=== PATIENT | female | born 1990 | race Caucasian/White ===

== ENCOUNTER 2022-09-22 18:17 | Inpatient (IN) | payer MEDICAID ==
[~2022-09-22] VITALS: Ht 157.5 cm; Wt 72.6 kg
[2022-09-22] MEDS ORDERED: SODIUM CHLORIDE 0.9% 1,000 ML IV ONE (19:15)
[2022-09-22] MEDS ORDERED: MORPHINE SULFATE 4 MG/ML CPJ (NOT FOR IM USE) IV ONE (19:15)
[2022-09-22] MEDS ORDERED: METOCLOPRAMIDE HCL 10MG/2ML VIAL IV ONE (19:15)
[2022-09-22] MEDS: DIPHENHYDRAMINE 50MG/ML VIAL IV ONE ×2 (19:15→19:22)
[2022-09-22 19:38] LABS: HCG SCREEN NEGATIVE
[2022-09-22 19:39] LABS: BASOPHILS % 1.1 % (0.0-2.0); EOSINOPHILS % 0.2 % (0.0-5.0); HEMATOCRIT. 42.9 % (36.0-48.0); HEMOGLOBIN. 14.4 g/dL (12.0-16.0); LYMPHOCYTES % 9.9 % (20.0-50.0); MEAN CORPUSCULAR HEMOGLOBIN 24.8 pg (28.0-32.0); MEAN PLATELET VOLUME 8.7 fl (7.4-10.4); MONOCYTES % 11.1 % (2.0-8.0); NEUTROPHILS % 77.7 % (40.0-76.0); PLATELET 447 x1000/uL (130-400); RED CELL DISTRIBUTION WIDTH 16.4 % (11.6-14.6)
[2022-09-22 21:26] LABS: INR 1.3
[2022-09-22 21:55] LABS: CHLORIDE 83 mEq/L (98-107)
[2022-09-22] MEDS ORDERED: HYDROMORPHONE HCL/PF 2MG/ML CPJ IV PRN (22:45)
[2022-09-22] MEDS ORDERED: IPRATROPIUM/ALBUTEROL 0.5-3(2.5)MG/3ML NEB HHN PRN (22:45)
[2022-09-22] MEDS ORDERED: ONDANSETRON HCL 4MG/2ML INJ IV PRN (22:45)
[2022-09-22] MEDS ORDERED: ACETAMINOPHEN 650MG SUPP PR PRN (22:45)
[2022-09-22] MEDS ORDERED: NALOXONE HCL 0.4MG/ML VIAL IV PRN (23:00)
[2022-09-23 01:00] VITALS: BP_SYST 104; BP_SYST 99; BP_DIAS 53; BP_DIAS 60
[2022-09-23] MEDS: DEXT 5%/0.9% NACL 1,000 ML IV SCH ×2 (02:00→21:18)
[2022-09-23] MEDS: KCL 20MEQ/100ML PREMIX 100 ML IV SCH ×2 (03:30→09:04)
[2022-09-23 04:00] VITALS: BP 99/56
[2022-09-23 07:13] LABS: EOSINOPHILS % 0.9 % (0.0-5.0); HEMATOCRIT. 32.4 % (36.0-48.0); LYMPHOCYTES % 19.5 % (20.0-50.0); MEAN CORPUSCULAR HEMOGLOBIN 25.4 pg (28.0-32.0); MEAN CORPUSCULAR VOLUME 74.9 fL (81.0-99.0); MEAN PLATELET VOLUME 8.1 fl (7.4-10.4); MONOCYTES % 13.9 % (2.0-8.0); NEUTROPHILS % 64.7 % (40.0-76.0); PLATELET 302 x1000/uL (130-400); RED BLOOD CELL COUNT 4.33 mill/uL (4.2-5.4); RED CELL DISTRIBUTION WIDTH 15.8 % (11.6-14.6)
[2022-09-23 08:00] VITALS: BP 92/48
[2022-09-23] MEDS ORDERED: ENOXAPARIN 40MG/0.4ML SYR SUBCUT SCH (09:00)
[2022-09-23] MEDS: PANTOPRAZOLE SODIUM 40 MG/VIAL IV SCH (09:04)
[2022-09-23 12:00] VITALS: BP 87/61
[2022-09-23] MEDS ORDERED: LIDOCAINE HCL 1% 10 MG/ML 10ML VIAL ONE (12:45)
[2022-09-23 16:00] VITALS: BP 98/58
[2022-09-23] MEDS ORDERED: KCL 20MEQ/100ML PREMIX 100 ML IV NR (18:00)
[2022-09-23] MEDS ORDERED: METOCLOPRAMIDE HCL 10MG/2ML VIAL IV PRN (18:15)
[2022-09-23 18:27] LABS: CHLORIDE 94 mEq/L (98-107)
[2022-09-23 18:57] LABS: AMYLASE 43 IU/L (25-115); TOTAL IRON BINDING CAPACITY 359 ug/dL (250-450)
[2022-09-23 20:00] VITALS: BP 91/54
[2022-09-23 20:19] LABS: VITAMIN B12 SERUM > 2000.0 pg/mL (211-911)
[2022-09-23] MEDS ORDERED: POTASSIUM CHLORIDE INJ 40 MEQ in DEXT 5% WATER 500 ML IV NR (22:00)
[2022-09-24] VITALS: BP 91/59
[2022-09-24 00:03] LABS: T4 FREE 1.5 ng/dL (0.76-1.46)
[2022-09-24 04:00] VITALS: BP 80/50
[2022-09-24 04:38] LABS: CHLORIDE 100 mEq/L (98-107)
[2022-09-24 04:56] LABS: T4 FREE 1.32 ng/dL (0.76-1.46)
[2022-09-24 05:04] LABS: HEPATITIS B SURFACE ANTIGEN NEGATIVE
[2022-09-24] MEDS ORDERED: POTASSIUM CHLORIDE INJ 40 MEQ in DEXT 5% WATER 500 ML IV ONE ×2 (05:45→23:30)
[2022-09-24 05:55] LABS: HEMATOCRIT 30.3 % (36.0-48.0); HEMOGLOBIN 10.2 g/dL (12.0-16.0); MEAN CORPUSCULAR HEMOGLOBIN 25.2 pg (28.0-32.0); PLATELET 264 x1000/uL (130-400); RED BLOOD CELL COUNT 4.04 mill/uL (4.2-5.4); RED CELL DISTRIBUTION WIDTH 16.5 % (11.6-14.6)
[2022-09-24] MEDS ORDERED: KCL 20MEQ/100ML X 2 FOR TOTAL KCL 40MEQ/200ML IV SCH (06:30)
[2022-09-24 06:47] LABS: CARCINO EMBRYONIC ANTIGEN < 0.5 ng/ml
[2022-09-24] MEDS ORDERED: MIDAZOLAM HCL 2 MG/2 ML VIAL ONE (07:20)
[2022-09-24] MEDS ORDERED: FENTANYL CITRATE/PF 50MCG/ML 2ML VIAL ONE (07:20)
[2022-09-24] MEDS ORDERED: BUPIVACAINE HCL/PF 0.5% (5MG/ML) 10ML ONE (07:27)
[2022-09-24] MEDS ORDERED: POLYMYXIN B SULFATE 500000 UNITS/VIAL ONE (07:27)
[2022-09-24] MEDS ORDERED: ROCURONIUM BROMIDE 10MG/ML VIAL 5ML IV ONE (08:01)
[2022-09-24] MEDS ORDERED: ONDANSETRON HCL 4MG/2ML INJ IV PRN (08:15)
[2022-09-24] MEDS ORDERED: MORPHINE SULFATE 2 MG/ML CPJ (NOT FOR IM USE) IV PRN (08:15)
[2022-09-24] MEDS ORDERED: MORPHINE SULFATE 4 MG/ML CPJ (NOT FOR IM USE) IV PRN (08:15)
[2022-09-24] MEDS ORDERED: ALBUMIN HUMAN 25GM/100ML (25%) IV ONE (08:30)
[2022-09-24] MEDS ORDERED: LIDOCAINE HCL 2% JELLY 5ML ONE (08:31)
[2022-09-24] MEDS ORDERED: ONDANSETRON HCL 4MG/2ML INJ ONE (08:32)
[2022-09-24] MEDS ORDERED: DEXAMETHASONE 4MG/ML 1ML VIAL ONE (08:32)
[2022-09-24] MEDS ORDERED: CEFAZOLIN SODIUM 1000MG/VIAL ONE (08:32)
[2022-09-24] MEDS ORDERED: ALBUMIN HUMAN 5% 500 ML IV ONE ×2 (08:45)
[2022-09-24] MEDS ORDERED: GLYCOPYRROLATE 0.2 MG/ML 2ML VIAL ONE (08:48)
[2022-09-24] MEDS: FAMOTIDINE 20MG/2ML VIAL IV SCH ×2 (09:00→20:19)
[2022-09-24] MEDS ORDERED: NEOSTIGMINE METHYLSULFATE 1MG/ML 10 ML VIAL ONE (09:22)
[2022-09-24] MEDS ORDERED: FENTANYL CITRATE/PF 50MCG/ML 2ML VIAL IV PRN (09:30)
[2022-09-24] MEDS ORDERED: KETOROLAC 30MG/ML VIAL ONE (09:44)
[2022-09-24] MEDS ORDERED: HYDROMORPHONE PCA 10MG/50ML IV PRN (10:30)
[2022-09-24] MEDS ORDERED: ONDANSETRON INJ IV PRN (10:30)
[2022-09-24] MEDS ORDERED: NALOXONE INJ IV PRN (10:30)
[2022-09-24] MEDS ORDERED: DIPHENHYDRAMINE INJ IV PRN (10:30)
[2022-09-24] MEDS: HYDROMORPHONE HCL/PF 2MG/ML CPJ IV PRN ×7 (10:55→23:01)
[2022-09-24] MEDS: DEXT 5%/0.45% NACL KCL 20MEQ/L 1,000 ML IV SCH ×2 (14:45→21:23)
[2022-09-24] MEDS: PANTOPRAZOLE SODIUM 40 MG/VIAL IV SCH (15:27)
[2022-09-24 20:00] VITALS: BP 90/54
[2022-09-24] MEDS: MELATONIN 3MG TABLET PO SCH (21:00)
[2022-09-25] VITALS: BP 90/51
[2022-09-25] MEDS: KCL 20MEQ/100ML X 2 FOR TOTAL KCL 40MEQ/200ML IV SCH ×2 (00:27→02:09)
[2022-09-25] MEDS: HYDROMORPHONE HCL/PF 2MG/ML CPJ IV PRN ×7 (03:56→23:56)
[2022-09-25 04:00] VITALS: BP 89/57
[2022-09-25] MEDS: DEXT 5%/0.45% NACL KCL 20MEQ/L 1,000 ML IV SCH ×2 (05:26→16:00)
[2022-09-25 07:37] LABS: HEMATOCRIT 27.5 % (36.0-48.0); HEMOGLOBIN 9.1 g/dL (12.0-16.0); MEAN CORPUSCULAR HEMOGLOBIN 25.1 pg (28.0-32.0); PLATELET 233 x1000/uL (130-400); RED BLOOD CELL COUNT 3.61 mill/uL (4.2-5.4); RED CELL DISTRIBUTION WIDTH 16.4 % (11.6-14.6)
[2022-09-25 08:00] VITALS: BP 102/54
[2022-09-25 08:16] LABS: CHLORIDE 107 mEq/L (98-107)
[2022-09-25 08:26] LABS: PHOSPHORUS 2.1 mg/dL (2.5-4.9)
[2022-09-25] MEDS: FAMOTIDINE 20MG/2ML VIAL IV SCH ×2 (08:58→21:22)
[2022-09-25 12:00] VITALS: BP 101/70
[2022-09-25 16:00] VITALS: BP 104/56
[2022-09-25 20:00] VITALS: BP 95/54
[2022-09-25] MEDS: MELATONIN 3MG TABLET PO SCH (21:00)
[2022-09-26] VITALS: BP 94/53
[2022-09-26] MEDS: DEXT 5%/0.45% NACL KCL 20MEQ/L 1,000 ML IV SCH ×2 (03:24→12:00)
[2022-09-26 04:00] VITALS: BP 95/64
[2022-09-26] MEDS: HYDROMORPHONE HCL/PF 2MG/ML CPJ IV PRN ×5 (04:04→14:15)
[2022-09-26 08:00] VITALS: BP 97/59
[2022-09-26 08:13] LABS: HEMATOCRIT. 25.5 % (36.0-48.0); HEMOGLOBIN. 8.5 g/dL (12.0-16.0); MEAN CORPUSCULAR HEMOGLOBIN 25.7 pg (28.0-32.0); MEAN CORPUSCULAR VOLUME 76.6 fL (81.0-99.0); MEAN PLATELET VOLUME 8.7 fl (7.4-10.4); PLATELET 220 x1000/uL (130-400); RED BLOOD CELL COUNT 3.33 mill/uL (4.2-5.4); RED CELL DISTRIBUTION WIDTH 16.9 % (11.6-14.6)
[2022-09-26] MEDS: FAMOTIDINE 20MG/2ML VIAL IV SCH ×2 (08:29→21:04)
[2022-09-26 10:17] LABS: CHLORIDE 104 mEq/L (98-107)
[2022-09-26 12:00] VITALS: BP 93/56
[2022-09-26 14:04] LABS: PLATELET ESTIMATE NORMAL
[2022-09-26 16:00] VITALS: BP 102/54
[2022-09-26] MEDS ORDERED: KCL 10MEQ/50ML PREMIX 50 ML IV NR (16:30)
[2022-09-26 20:00] VITALS: BP 98/61
[2022-09-26] MEDS: MELATONIN 3MG TABLET PO SCH ×2 (21:00→21:05)
[2022-09-27] MEDS: HYDROMORPHONE HCL/PF 2MG/ML CPJ IV PRN ×3 (00:18→07:59)
[2022-09-27 00:30] VITALS: BP 138/92
[2022-09-27 02:00] VITALS: BP 118/65
[2022-09-27 06:00] VITALS: BP 129/66
[2022-09-27 06:47] LABS: BASOPHILS % 0.3 % (0.0-2.0); EOSINOPHILS % 0.4 % (0.0-5.0); HEMATOCRIT. 23.5 % (36.0-48.0); HEMOGLOBIN. 7.9 g/dL (12.0-16.0); MEAN CORPUSCULAR HEMOGLOBIN 25.8 pg (28.0-32.0); MEAN CORPUSCULAR VOLUME 76.1 fL (81.0-99.0); MEAN PLATELET VOLUME 8.4 fl (7.4-10.4); MONOCYTES % 9.4 % (2.0-8.0); NEUTROPHILS % 79.9 % (40.0-76.0); PLATELET 213 x1000/uL (130-400); RED BLOOD CELL COUNT 3.08 mill/uL (4.2-5.4); RED CELL DISTRIBUTION WIDTH 16.9 % (11.6-14.6)
[2022-09-27 08:00] LABS: CHLORIDE 105 mEq/L (98-107)
[2022-09-27] MEDS: DEXT 5%/0.45% NACL KCL 20MEQ/L 1,000 ML IV SCH ×2 (08:00→18:00)
[2022-09-27] MEDS: FAMOTIDINE 20MG/2ML VIAL IV SCH ×2 (08:43→20:35)
[2022-09-27] MEDS ORDERED: FERROUS SULFATE 325MG TABLET PO SCH (12:50)
[2022-09-27] MEDS ORDERED: MORPHINE SULFATE 2 MG/ML CPJ (NOT FOR IM USE) IV PRN (13:45)
[2022-09-27] MEDS: IRON SUCROSE COMPLEX 100 MG/5 ML ML IV SCH (15:17)
[2022-09-27] MEDS: MORPHINE SULFATE 2 MG/ML CPJ (NOT FOR IM USE) IV PRN (17:59)
[2022-09-27 20:00] VITALS: BP 117/67
[2022-09-27] MEDS: ACETAMINOPHEN 650MG/20.3ML UDC GT SCH (23:18)
[2022-09-28] VITALS: BP 112/69
[2022-09-28 04:00] VITALS: BP 100/59
[2022-09-28] MEDS: ACETAMINOPHEN 650MG/20.3ML UDC GT SCH ×2 (04:00→10:00)
[2022-09-28] MEDS: DEXT 5%/0.45% NACL KCL 20MEQ/L 1,000 ML IV SCH ×3 (06:32→22:01)
[2022-09-28 08:00] VITALS: BP 108/69
[2022-09-28] MEDS: MORPHINE SULFATE 2 MG/ML CPJ (NOT FOR IM USE) IV PRN (08:30)
[2022-09-28 08:32] LABS: BASOPHILS % 0.4 % (0.0-2.0); EOSINOPHILS % 1.9 % (0.0-5.0); HEMATOCRIT. 22.7 % (36.0-48.0); HEMOGLOBIN. 7.9 g/dL (12.0-16.0); LYMPHOCYTES % 11.2 % (20.0-50.0); MEAN CORPUSCULAR HEMOGLOBIN 26.5 pg (28.0-32.0); MEAN CORPUSCULAR VOLUME 76.5 fL (81.0-99.0); MEAN PLATELET VOLUME 8.6 fl (7.4-10.4); MONOCYTES % 9.9 % (2.0-8.0); NEUTROPHILS % 76.6 % (40.0-76.0); PLATELET 275 x1000/uL (130-400); RED BLOOD CELL COUNT 2.97 mill/uL (4.2-5.4); RED CELL DISTRIBUTION WIDTH 16.9 % (11.6-14.6)
[2022-09-28 08:58] LABS: CHLORIDE 108 mEq/L (98-107)
[2022-09-28] MEDS: FAMOTIDINE 20MG/2ML VIAL IV SCH ×2 (09:00→21:27)
[2022-09-28 12:00] VITALS: BP 104/65
[2022-09-28] MEDS ORDERED: ACETAMINOPHEN 650MG/20.3ML UDC GT PRN (14:30)
[2022-09-28] MEDS ORDERED: HYDROMORPHONE HCL/PF 2MG/ML CPJ IV PRN (14:30)
[2022-09-28] MEDS: IRON SUCROSE COMPLEX 100 MG/5 ML ML IV SCH (15:25)
[2022-09-28 20:00] VITALS: BP 126/84
[2022-09-28] MEDS: MELATONIN 3MG TABLET PO SCH (21:33)
[2022-09-29] VITALS: BP 98/59
[2022-09-29 04:00] VITALS: BP 94/52
[2022-09-29 08:00] VITALS: BP 100/59
[2022-09-29] MEDS: FAMOTIDINE 20MG/2ML VIAL IV SCH ×2 (08:50→20:23)
[2022-09-29] MEDS: DEXT 5%/0.45% NACL KCL 20MEQ/L 1,000 ML IV SCH ×2 (10:00→20:00)
[2022-09-29 12:00] VITALS: BP 96/60
[2022-09-29 12:43] LABS: BASOPHILS % 1.1 % (0.0-2.0); EOSINOPHILS % 3.1 % (0.0-5.0); HEMATOCRIT. 23.9 % (36.0-48.0); LYMPHOCYTES % 10.5 % (20.0-50.0); MEAN CORPUSCULAR HEMOGLOBIN 25.6 pg (28.0-32.0); MEAN CORPUSCULAR VOLUME 76.6 fL (81.0-99.0); MEAN PLATELET VOLUME 7.9 fl (7.4-10.4); MONOCYTES % 11.2 % (2.0-8.0); NEUTROPHILS % 74.1 % (40.0-76.0); PLATELET 336 x1000/uL (130-400); RED BLOOD CELL COUNT 3.12 mill/uL (4.2-5.4); RED CELL DISTRIBUTION WIDTH 17.6 % (11.6-14.6)
[2022-09-29] MEDS: IRON SUCROSE COMPLEX 100 MG/5 ML ML IV SCH (14:00)
[2022-09-29 14:35] LABS: CHLORIDE 110 mEq/L (98-107)
[2022-09-29 16:00] VITALS: BP 102/59
[2022-09-29 20:00] VITALS: BP 103/55
[2022-09-29] MEDS: MELATONIN 3MG TABLET PO SCH (20:23)
[2022-09-30] VITALS (7 sets, daily range): BP systolic 95–120; BP diastolic 53–80
[2022-09-30] MEDS: DEXT 5%/0.45% NACL KCL 20MEQ/L 1,000 ML IV SCH ×2 (04:32→15:32)
[2022-09-30 08:19] LABS: EOSINOPHILS % 3.5 % (0.0-5.0); HEMATOCRIT. 23.2 % (36.0-48.0); HEMOGLOBIN. 7.7 g/dL (12.0-16.0); LYMPHOCYTES % 21.9 % (20.0-50.0); MEAN CORPUSCULAR HEMOGLOBIN 25.6 pg (28.0-32.0); MEAN CORPUSCULAR VOLUME 76.7 fL (81.0-99.0); MEAN PLATELET VOLUME 7.4 fl (7.4-10.4); MONOCYTES % 12.9 % (2.0-8.0); NEUTROPHILS % 60.7 % (40.0-76.0); PLATELET 357 x1000/uL (130-400); RED BLOOD CELL COUNT 3.02 mill/uL (4.2-5.4); RED CELL DISTRIBUTION WIDTH 17.2 % (11.6-14.6)
[2022-09-30 08:31] LABS: CHLORIDE 110 mEq/L (98-107)
[2022-09-30] MEDS: FAMOTIDINE 20MG/2ML VIAL IV SCH ×2 (09:00→21:47)
[2022-09-30] MEDS: MELATONIN 3MG TABLET PO SCH (21:00)
[2022-10-01] VITALS: BP 97/49
[2022-10-01] MEDS: DEXT 5%/0.45% NACL KCL 20MEQ/L 1,000 ML IV SCH ×3 (02:00→21:40)
[2022-10-01 04:00] VITALS: BP 102/53
[2022-10-01 07:45] LABS: BASOPHILS % 0.4 % (0.0-2.0); EOSINOPHILS % 2.8 % (0.0-5.0); HEMATOCRIT. 25.2 % (36.0-48.0); HEMOGLOBIN. 8.4 g/dL (12.0-16.0); LYMPHOCYTES % 18.4 % (20.0-50.0); MEAN CORPUSCULAR HEMOGLOBIN 25.5 pg (28.0-32.0); MEAN CORPUSCULAR VOLUME 76.7 fL (81.0-99.0); MEAN PLATELET VOLUME 7.3 fl (7.4-10.4); MONOCYTES % 8.6 % (2.0-8.0); NEUTROPHILS % 69.8 % (40.0-76.0); PLATELET 434 x1000/uL (130-400); RED BLOOD CELL COUNT 3.28 mill/uL (4.2-5.4); RED CELL DISTRIBUTION WIDTH 17.2 % (11.6-14.6)
[2022-10-01 08:00] VITALS: BP 97/55
[2022-10-01 08:02] LABS: CHLORIDE 109 mEq/L (98-107)
[2022-10-01] MEDS: FAMOTIDINE 20MG/2ML VIAL IV SCH ×2 (08:31→20:39)
[2022-10-01 12:00] VITALS: BP 105/58
[2022-10-01 16:00] VITALS: BP 103/56
[2022-10-01 20:00] VITALS: BP 97/58
[2022-10-01] MEDS: MELATONIN 3MG TABLET PO SCH (21:00)
[2022-10-02] VITALS: BP 138/82
[2022-10-02 04:00] VITALS: BP 102/48
[2022-10-02 08:00] VITALS: BP 100/47
[2022-10-02] MEDS: FAMOTIDINE 20MG TABLET PO SCH ×2 (09:04→21:01)
[2022-10-02] MEDS: DEXT 5%/0.45% NACL KCL 20MEQ/L 1,000 ML IV SCH ×2 (09:04→18:17)
[2022-10-02] MEDS ORDERED: THROAT LOZENGES-BENZOCAINE/MENTH/CETYLPYRD CL LOZENGES MM PRN (09:45)
[2022-10-02 12:00] VITALS: BP 103/58
[2022-10-02 12:30] LABS: HEMATOCRIT 25.5 % (36.0-48.0); HEMOGLOBIN 8.6 g/dL (12.0-16.0); MEAN CORPUSCULAR HEMOGLOBIN 25.9 pg (28.0-32.0); MEAN CORPUSCULAR VOLUME 76.5 fL (81.0-99.0); PLATELET 506 x1000/uL (130-400); RED BLOOD CELL COUNT 3.33 mill/uL (4.2-5.4); RED CELL DISTRIBUTION WIDTH 17.5 % (11.6-14.6)
[2022-10-02 12:39] LABS: CHLORIDE 108 mEq/L (98-107)
[2022-10-02 16:00] VITALS: BP 104/59
[2022-10-02 20:00] VITALS: BP 100/59
[2022-10-02] MEDS: MELATONIN 3MG TABLET PO SCH (21:00)
[2022-10-03] MEDS: DEXT 5%/0.45% NACL KCL 20MEQ/L 1,000 ML IV SCH ×3 (04:10→22:18)
[2022-10-03 07:56] VITALS: BP 91/47
[2022-10-03] MEDS: FAMOTIDINE 20MG TABLET PO SCH ×3 (08:27→21:00)
[2022-10-03 12:00] VITALS: BP 109/44
[2022-10-03 16:00] VITALS: BP 95/56
[2022-10-03] MEDS: MELATONIN 3MG TABLET PO SCH ×2 (20:43→21:06)
[2022-10-03] MEDS ORDERED: TOPUD PO (22:03)
[2022-10-03] MEDS ORDERED: FAMO20TA8 PO (22:03)
[2022-10-03] MEDS ORDERED: POLY119P2 ONENSTRL (22:46)
[2022-10-04] MEDS: FAMOTIDINE 20MG TABLET PO SCH (09:24)
[2022-10-04 09:32] LABS: BASOPHILS % 0.8 % (0.0-2.0); HEMATOCRIT. 28.3 % (36.0-48.0); HEMOGLOBIN. 9.4 g/dL (12.0-16.0); LYMPHOCYTES % 17.2 % (20.0-50.0); MEAN CORPUSCULAR HEMOGLOBIN 25.8 pg (28.0-32.0); MEAN CORPUSCULAR VOLUME 77.4 fL (81.0-99.0); MEAN PLATELET VOLUME 7.1 fl (7.4-10.4); MONOCYTES % 5.5 % (2.0-8.0); NEUTROPHILS % 74.5 % (40.0-76.0); PLATELET 600 x1000/uL (130-400); RED BLOOD CELL COUNT 3.66 mill/uL (4.2-5.4); RED CELL DISTRIBUTION WIDTH 18.3 % (11.6-14.6)
[2022-10-04 09:44] LABS: CHLORIDE 110 mEq/L (98-107)
[2022-10-04 10:05] LABS: PHOSPHORUS 3.7 mg/dL (2.5-4.9); TOTAL IRON BINDING CAPACITY 300 ug/dL (250-450)
[2022-10-04 12:19] VITALS: BP 100/60
== END 2022-10-04 15:47 | disposition home or self-care (01) | DRG 220 ==
LOC: ER 18:17 → 6EST 21:45 → EDBEDREQ 21:52 → SUPCPDRO 22:03 → ENRESERV 23:03
PROVIDERS: ADMIT Internal Medicine; ATTEND Internal Medicine
PROC: 02HV33Z Insertion of Infusion Device into Superior Vena Cava, Percutaneous Approach (ICD-10-PCS; principal; 2022-09-23)
PROC: B548ZZA Ultrasonography of Superior Vena Cava, Guidance (ICD-10-PCS; 2022-09-23)
PROC: 0D160ZA Bypass Stomach to Jejunum, Open Approach (ICD-10-PCS; 2022-09-24)
PROC: 0DB60ZZ Excision of Stomach, Open Approach (ICD-10-PCS; 2022-09-24)
DX: C16.9 Malignant neoplasm of stomach, unspecified (principal); K85.90 Acute pancreatitis without necrosis or infection, unspecified; K75.9 Inflammatory liver disease, unspecified; E87.1 Hypo-osmolality and hyponatremia; Z20.822 Contact with and (suspected) exposure to COVID-19; D50.0 Iron deficiency anemia secondary to blood loss (chronic); E87.6 Hypokalemia; R74.01 Elevation of levels of liver transaminase levels; F41.9 Anxiety disorder, unspecified; Z85.028 Personal history of other malignant neoplasm of stomach
CPT/HCPCS: 36415; 36573; 71045; 74176; 76700; 80048; 80053; 82150; 82378; 82607; 82728; 82746; 83036; 83540; 83550; 83735; 84100; 84439; 84443; 84703; 85025; 85027; 86705; 86709; 86803; 86850; 86900; 87340; 87426; 88307; 93005; 97116; 97162; 97166; 97530; 97535; 99285; C1725; C1758; C9113; J0690; J1100; J1170; J1200; J1885; J2250; J2270; J2405; J2710; J2765; J3010; J3480; J3490; J7030; J7042; J7060; P9041; P9047

== ENCOUNTER 2023-06-14 19:35 | Emergency (ER) | payer BC, MEDICAID ==
[~2023-06-14 19:35] MED LIST: FAMO20TA8 PO; POLY119P2 ONENSTRL; TOPUD PO
[2023-06-14 20:25] VITALS: PULSE 56
[2023-06-14] MEDS ORDERED: SODIUM CHLORIDE 0.9% 1,000 ML IV ONE (21:45)
== END 2023-06-14 22:07 | disposition left against medical advice (07) ==
LOC: ER 19:35 → CANBEDREQ 06-16 21:15
DX: Z53.21 Procedure and treatment not carried out due to patient leaving prior to being seen by health care provider (principal)
CPT/HCPCS: 99281; J7030